=== PATIENT | male | born 1960 | race Caucasian/White ===

== ENCOUNTER 2023-06-30 10:46 | Emergency (ER) | payer OTHER ==
[2023-06-30 11:46] LABS: #Eosinphils 0.2 thou/uL (0.0-0.7); #Lymphocytes 1.1 thou/uL (1.20-3.40); #Monocytes 0.5 thou/uL (0.11-0.59); %Basophils 0.6 % (0.0-1.0); %Eosinophils 2.3 % (0.0-10.0); %Lymphocytes 15.7 % (21.0-51.0); %Monocytes 6.7 % (0.0-10.0); %Neutrophils 74.7 % (42.0-75.0); Hematocrit 41.5 % (42.0-52.0); Hemoglobin 13.5 g/dL (14.0-18.0); Mean Corpuscular HGB CONC 32.4 g/dL (32.0-36.0); Mean Corpuscular Hemoglobin 30.4 pg (27.0-31.0); Mean Corpuscular Volume 93.8 fl (78.0-98.0); Mean Platelet Volume 9.9 fL (7.4-10.4); Platelet Count 165 10x3/uL (130-400); RBC Distribution Width 12.6 % (11.5-14.5); Red Blood Cell (RBC) Count 4.42 mill/uL (4.70-6.10); White Blood Cell (WBC) Count 6.7 10x3/uL (4.8-10.8)
[2023-06-30 12:00] LABS: ALT (SGPT) 15 U/L (8-55); AST (SGOT) 13 U/L (5-34); Albumin 3.9 g/dL (3.4-4.8); Alkaline Phosphatase 58 U/L (40-110); Anion Gap 12 mmol/L (10-20); BUN (Urea Nitrogen) 30 mg/dL (8.4-25.7); Bilirubin, Total 0.5 mg/dL (0.2-1.2); Calc. Creatinine Clearance 0 mL/min (70-130); Calcium 9.4 mg/dL (7.8-10.44); Carbon Dioxide 24 mmol/L (23-31); Chloride 109 mmol/L (98-107); Estimated GFR 37; Glucose 194 mg/dL (80-115); Potassium 4.6 mmol/L (3.5-5.1); Protein, Total 6.9 g/dL (5.8-8.1); Sodium 140 mmol/L (136-145)
[2023-06-30] MEDS ORDERED: Cephalexin 500 MG CAP ONE (12:18)
[2023-06-30] MEDS ORDERED: Sulfameth/Trimethoprim DS 800-160mg TAB ONE (12:18)
== END 2023-06-30 12:22 | disposition home or self-care (01) ==
LOC: MADERS 10:46
DX: E11.621 Type 2 diabetes mellitus with foot ulcer (principal); L03.116 Cellulitis of left lower limb; I10 Essential (primary) hypertension; F17.210 Nicotine dependence, cigarettes, uncomplicated
CPT/HCPCS: 36415; 80053; 85025; 86140